=== PATIENT | female | born 1995 | race Two or more races ===

== ENCOUNTER 2018-09-07 09:41 | Emergency (ER) | payer OTHER ==
[~2018-09-07] VITALS: Ht 152.4 cm; Wt 108.9 kg
[2018-09-07] MEDS ORDERED: ONDANSETRON ODT 4 MG TAB.RAPDIS. PO ONE (10:00)
[2018-09-07] MEDS ORDERED: IBUPROFEN 600 MG TABLET. PO ONE (10:00)
--- NOTE | 2018-09-07 10:21 | PHYS DOC ---
Past Medical History Past Medical History: No Pertinent History Past Surgical History: No Surgical History Alcohol Use: Rarely Drug Use: None Adult General Chief Complaint Chief Complaint: FLANK PAIN HPI HPI Patient is a 23 year old female with no significant medical history who presents today complaining of 10 out of 10 left flank pain with dark urine that began yesterday. Patient denies any nausea vomiting. She is also complaining of subjective fevers. Denies any chance she is . Denies any personal family history of kidney stones. Review of Systems Review of Systems Constitutional: Denies fever or chills [] Eyes: Denies change in visual acuity, redness, or eye pain [] HENT: Denies nasal congestion or sore throat [] Respiratory: Denies cough or shortness of breath [] Cardiovascular: No additional information not addressed in HPI [] GI: Denies abdominal pain, nausea, vomiting, bloody stools or diarrhea [] : Reports left flank pain and dark urine. Denies dysuria or hematuria [] Musculoskeletal: Denies back pain or joint pain [] Integument: Denies rash or skin lesions [] Neurologic: Denies headache, focal weakness or sensory changes [] All other systems were reviewed and found to be within normal limits, except as documented in this note. Current Medications Current Medications Current Medications Medications (Trade) Dose Ordered Sig/Alyssia Start Time Stop Time Status Last Admin Dose Admin Ceftriaxone Sodium 50 ml @ 100 mls/hr 1X ONCE 09/07/18 12:15 09/07/18 12:44 Ibuprofen (Motrin) 600 mg 1X ONCE 09/07/18 10:00 09/07/18 10:24 DC 09/07/18 10:35 600 MG Ondansetron HCl (Zofran Odt) 4 mg 1X ONCE 09/07/18 10:00 09/07/18 10:24 DC 09/07/18 10:35 4 MG Sodium Chloride 1,000 ml @ 1,000 mls/hr 1X ONCE 09/07/18 10:45 09/07/18 11:44 DC 09/07/18 11:01 1,000 MLS/HR Allergies Allergies Allergies Coded Allergies Type Severity Reaction Last Updated Verified No Known Drug Allergies 09/07/18 No Physical Exam Physical Exam Constitutional: Well developed, well nourished, no acute distress, non-toxic appearance. [] HENT: Normocephalic, atraumatic, bilateral external ears normal, oropharynx moist, no oral exudates, nose normal. [] Eyes: PERRLA, EOMI, conjunctiva normal, no discharge. [] Neck: Normal range of motion, no tenderness, supple, no stridor. [] Cardiovascular:Heart rate regular rhythm, no murmur [] Lungs & Thorax: Bilateral breath sounds clear to auscultation [] Abdomen: Bowel sounds normal, soft, no tenderness, no masses, no pulsatile masses. [] Skin: Warm, dry, no erythema, no rash. [] Back: No tenderness, mild left CVA tenderness. [] Extremities: No tenderness, no cyanosis, no clubbing, ROM intact, no edema. [] Neurologic: Alert and oriented X 3, normal motor function, normal sensory function, no focal deficits noted. [] Psychologic: Affect normal, judgement normal, mood normal. [] Current Patient Data Vital Signs Vital Signs Date Time Temp Pulse Resp B/P (MAP) Pulse Ox O2 Delivery O2 Flow Rate FiO2 09/07/18 10:05 99.3 138 18 130/77 (94) 95 Room Air 99.3 Lab Values Laboratory Tests Test 09/07/18 09:10 09/07/18 09:58 09/07/18 10:00 09/07/18 11:00 Urine Opiates Screen Neg (NEG) Urine Methadone Screen Neg (NEG) Urine Barbiturates Neg (NEG) Urine Phencyclidine Screen Neg (NEG) Urine Amphetamine/Methamphetamine Neg (NEG) Urine Benzodiazepines Screen Neg (NEG) Urine Cocaine Screen Neg (NEG) Urine Cannabinoids Screen Neg (NEG) Urine Ethyl Alcohol Neg (NEG) Urine Collection Type Unknown Urine Color [place] Urine Clarity Cloudy Urine pH Urine Specific Joshua 1.025 Urine Protein mg/dL (NEG-TRACE) Urine Glucose (UA) mg/dL (NEG) Urine Ketones (Stick) mg/dL (NEG) Urine Blood (NEG) Urine Nitrite (NEG) Urine Bilirubin (NEG) Urine Urobilinogen Dipstick mg/dL (0.2 mg/dL) Urine Leukocyte Esterase (NEG) Urine RBC 6-10 /HPF (0-2) Urine WBC 11-20 /HPF (0-4) Urine Squamous Epithelial Cells Mod /LPF Urine Bacteria Many /HPF (0-FEW) POC Urine HCG, Qualitative Hcg negative (Negative) White Blood Count 15.7 x10^3/uL (4.0-11.0) H Red Blood Count 4.63 x10^6/uL (3.50-5.40) Hemoglobin 14.0 g/dL (12.0-15.5) Hematocrit 40.3 % (36.0-47.0) Mean Corpuscular Volume 87 fL (79-100) Mean Corpuscular Hemoglobin 30 pg (25-35) Mean Corpuscular Hemoglobin Concent 35 g/dL (31-37) Red Cell Distribution Width 12.9 % (11.5-14.5) Platelet Count 322 x10^3/uL (140-400) Neutrophils (%) (Auto) 80 % (31-73) H Lymphocytes (%) (Auto) 12 % (24-48) L Monocytes (%) (Auto) 6 % (0-9) Eosinophils (%) (Auto) 0 % (0-3) Basophils (%) (Auto) 1 % (0-3) Neutrophils # (Auto) 12.6 x10^3uL (1.8-7.7) H Lymphocytes # (Auto) 1.9 x10^3/uL (1.0-4.8) Monocytes # (Auto) 1.0 x10^3/uL (0.0-1.1) Eosinophils # (Auto) 0.0 x10^3/uL (0.0-0.7) Basophils # (Auto) 0.1 x10^3/uL (0.0-0.2) Platelet Estimate Pending Sodium Level 133 mmol/L (136-145) L Potassium Level 3.7 mmol/L (3.5-5.1) Chloride Level 96 mmol/L (98-107) L Carbon Dioxide Level 27 mmol/L (21-32) Anion Gap 10 (6-14) Blood Urea Nitrogen 7 mg/dL (7-20) Creatinine 0.6 mg/dL (0.6-1.0) Estimated GFR (Cockcroft-Gault) 123.9 BUN/Creatinine Ratio 12 (6-20) Glucose Level 251 mg/dL (70-99) H Calcium Level 9.4 mg/dL (8.5-10.1) Total Bilirubin 0.6 mg/dL (0.2-1.0) Aspartate Amino Transferase (AST) 11 U/L (15-37) L Alanine Aminotransferase (ALT) 33 U/L (14-59) Alkaline Phosphatase 82 U/L (46-116) Total Protein 9.3 g/dL (6.4-8.2) H Albumin 3.7 g/dL (3.4-5.0) Albumin/Globulin Ratio 0.7 (1.0-1.7) L Lipase 103 U/L (73-393) Laboratory Tests 09/07/18 11:00 Laboratory Tests 09/07/18 11:00 EKG EKG [] Radiology/Procedures Radiology/Procedures []PROCEDURE: CT ABDOMEN PELVIS WO CONTRAST Examination: CT ABDOMEN PELVIS WO CONTRAST History: L FLANK PAIN X 2 DAYS NO CONTRAST NO PREV ; dark urine Comparison/Correlation: None Findings: Axial images of the abdomen and pelvis were obtained without contrast. Sagittal and coronal reformatted images were provided. Visualized lung bases are clear. Diffuse fatty infiltration of the liver is noted. Spleen, pancreas, and adrenal glands are normal. No radiopaque collecting system calculi definitely identified. Slightly high of the medullary appearance noted. No enlarged abdominal or pelvic lymph nodes. Moderate quantity of stool in the colon. No obstruction. Appendix is normal. No ascites or pelvic free fluid. Urinary bladder is unremarkable. Bony structures are unremarkable. Impression: Diffuse fatty infiltration of the liver. No hydronephrosis. No radiopaque collecting system calculi. Electronically signed by: Tobi Stacy MD (09/07/2018 11:39 AM) [facility] DICTATED and SIGNED BY: TOBI STACY MD DATE: 09/07/18 1133 Course & Med Decision Making Course & Med Decision Making Pertinent Labs and Imaging studies reviewed. (See chart for details) This is a 23-year-old female patient presented to the ED today with left flank pain and dark urine that began yesterday. Negative urine hCG, urine analysis was not able to be read /interpreted due to the color of urine. Urine noted for many bacteria. CBC with a WBC of 15.7 and left shift. CMP with glucose of 251, anion gap is normal. Patient denies any previous history of diabetes. She states she can follow-up with her PCP for further check up on this. CT of the abdomen and pelvic was negative for any acute findings. Considering her urine was not interpreted due color and her elevated WBC i suspect this patient has pyelonephritis. Was given Rocephin in the ED. Discharged with cephalexin. Encouraged patient to push fluids. Encouraged patient to follow-up with her PCP in the course of this week or next week for possible diabetes management. Patient was also tachycardic on arrival to the ED with heart rates in the 130s. We gave her IV fluids. Heart rate has slowed down to low 100s, IV fluids still infusing at this point. Temperature is 99.0 on arrival to the ED, blood pressures in the 130s over 70s. Dragon Disclaimer Dragon Disclaimer This electronic medical record was generated, in whole or in part, using a voice recognition dictation system. Departure Departure Impression: Primary Impression: Acute pyelonephritis Additional Impressions: Tachycardia Hyperglycemia Disposition: 01 HOME, SELF-CARE Condition: STABLE Referrals: UNKNOWN PCP NAME (PCP) follow up with your doctor or a doctor from the list provided Patient Instructions: Hyperglycemia, [id number], Pyelonephritis, Adult Additional Instructions: You were evaluated in the emergency room for flank pain, we suspect you have kidney infection. We put you on antibiotics, ensure you complete them. Take the prescribed pain medicines and nausea medicine as needed. Push fluids. Your blood glucose was 251, this is very high, normal blood glucose is 70-99. Please come back to the ED at any point symptoms worsen. Scripts Ibuprofen (IBUPROFEN) 600 Mg Tablet 600 MG PO PRN Q6HRS PRN for INFLAMMATION, #30 TAB Prov: IRMA MCCRAY APRN 09/07/18 Hydrocodone/Apap 5-325 (NORCO 5-325 TABLET) 1 Each Tablet 1 TAB PO Q6HRS, #10 TAB Prov: IRMA MCCARY APRN 09/07/18 Ondansetron (ZOFRAN ODT) 4 Mg Tab.rapdis 1 TAB SL Q8HRS, #15 TAB Prov: IRMA MCCRAY APRN 09/07/18 Cephalexin (CEPHALEXIN) 500 Mg Tablet 1 TAB PO BID, #14 TAB Prov: IRMA MCCRAY APRN 09/07/18 Problem Qualifiers IRMA MCCRAY APRN Sep 07, 2018 10:21
[2018-09-07 10:30] LABS: CLARITY,URINE CLOUDY; COLOR,URINE ORANGE
[2018-09-07] MEDS ORDERED: IV NORMAL SALINE 1000ML BAG 1,000 ML IV ONE (10:45)
[2018-09-07 10:56] LABS: SQUAMOUS EPITHELIAL CELL,UR MOD /LPF
[2018-09-07 10:57] LABS: BACTERIA,URINE MANY /HPF (0-FEW)
[2018-09-07 11:09] LABS: BASO # 0.1 x10^3/uL (0.0-0.2); BASO % 1 % (0-3); EOS % 0 % (0-3); HEMATOCRIT 40.3 % (36.0-47.0); LYMPH # 1.9 x10^3/uL (1.0-4.8); LYMPH % 12 % (24-48); MEAN CORPUSCULAR HEMOGLOBIN 30 pg (25-35); MEAN CORPUSCULAR HGB CONC 35 g/dL (31-37); MEAN CORPUSCULAR VOLUME 87 fL (79-100); MONO % 6 % (0-9); NEUT # 12.6 x10^3uL (1.8-7.7); NEUT % 80 % (31-73); PLATELET COUNT 322 x10^3/uL (140-400); RED BLOOD COUNT 4.63 x10^6/uL (3.50-5.40); RED CELL DISTRIBUTION WIDTH 12.9 % (11.5-14.5); WHITE BLOOD COUNT 15.7 x10^3/uL (4.0-11.0)
[2018-09-07 11:21] LABS: CALCIUM 9.4 mg/dL (8.5-10.1); CREATININE 0.6 mg/dL (0.6-1.0); GFR 123.9; POTASSIUM 3.7 mmol/L (3.5-5.1)
[2018-09-07 11:39] LABS: ALBUMIN 3.7 g/dL (3.4-5.0); ALBUMIN/GLOBULIN RATIO 0.7 (1.0-1.7); TOTAL BILIRUBIN 0.6 mg/dL (0.2-1.0); TOTAL PROTEIN 9.3 g/dL (6.4-8.2)
--- NOTE | 2018-09-07 11:42 | RAD ---
Examination: CT ABDOMEN PELVIS WO CONTRAST History: L FLANK PAIN X 2 DAYS NO CONTRAST NO PREV ; dark urine Comparison/Correlation: None Findings: Axial images of the abdomen and pelvis were obtained without contrast. Sagittal and coronal reformatted images were provided. Visualized lung bases are clear. Diffuse fatty infiltration of the liver is noted. Spleen, pancreas, and adrenal glands are normal. No radiopaque collecting system calculi definitely identified. Slightly high of the medullary appearance noted. No enlarged abdominal or pelvic lymph nodes. Moderate quantity of stool in the colon. No obstruction. Appendix is normal. No ascites or pelvic free fluid. Urinary bladder is unremarkable. Bony structures are unremarkable. Impression: Diffuse fatty infiltration of the liver. No hydronephrosis. No radiopaque collecting system calculi. Electronically signed by: Pablo Bridges MD (09/07/2018 11:39 AM) [facility]
[2018-09-07 12:07] LABS: BARBITURATES NEG (NEG); BENZODIAZEPINES NEG (NEG); CANNABINOIDS NEG (NEG); COCAINE NEG (NEG); METHADONE NEG (NEG); OPIATES NEG (NEG); PHENCYCLIDINE NEG (NEG)
[2018-09-07 12:09] LABS: AMPHETAMINE/METHAMPHETAMINE NEG (NEG)
[2018-09-07] MEDS ORDERED: IBUP-1007 PO (12:43)
[2018-09-07] MEDS ORDERED: CEPH500T PO (12:43)
[2018-09-07] MEDS ORDERED: HYDR-3164 PO (12:43)
[2018-09-07] MEDS ORDERED: ONDA4TAB10 SL (12:43)
[2018-09-07 12:54] VITALS: BP 107/60
[2018-09-07 13:18] LABS: % ATYL 1 % (0-0); % BANDS 10 % (0-9); % LYMPHS 9 % (24-48); % MONOS 6 % (0-10); % SEGS 74 % (35-66)
[2018-09-07 13:19] LABS: PLT ESTIMATE ADEQUATE (ADEQUATE)
== END 2018-09-07 13:20 | disposition home or self-care (01) ==
LOC: ER 09:41
DX: N10 Acute pyelonephritis (principal); R00.0 Tachycardia, unspecified; R73.9 Hyperglycemia, unspecified; K76.0 Fatty (change of) liver, not elsewhere classified
CPT/HCPCS: 36415; 74176; 80053; 80307; 81001; 81025; 83690; 85007; 85025; 87086; 96365; 99285; J0690; J7030; Q0162

== ENCOUNTER 2018-09-10 13:54 | Emergency (ER) | payer OTHER ==
[~2018-09-10] VITALS: Ht 154.9 cm; Wt 77.1 kg
[~2018-09-10 13:54] MED LIST: CEPH500T PO; HYDR-3164 PO; IBUP-1007 PO; ONDA4TAB10 SL
[2018-09-10 14:00] VITALS: BP 168/81
[2018-09-10] MEDS ORDERED: BISACODYL 5 MG TABLET.DR. PO STA (14:18)
[2018-09-10] MEDS ORDERED: MAGNESIUM CITRATE 296 ML SOLUTION. PO ONE (14:30)
[2018-09-10] MEDS ORDERED: ONDANSETRON ODT 4 MG TAB.RAPDIS. PO ONE (14:30)
--- NOTE | 2018-09-10 14:49 | PHYS DOC ---
Past Medical History Past Medical History: No Pertinent History Past Surgical History: No Surgical History Alcohol Use: Rarely Drug Use: None Adult General Chief Complaint Chief Complaint: CONSTIPATION HPI HPI Patient is a 23 year old female with no significant medical history who presents today complaining of constipation for 6 days. Patient states she was seen in the ED 3 days ago was diagnosed with pyelonephritis and given prescription for hydrocodone which made her constipation worse. Patient is also complaining of nausea with no vomiting. Denies any diarrhea. Review of Systems Review of Systems Constitutional: Denies fever or chills [] Eyes: Denies change in visual acuity, redness, or eye pain [] HENT: Denies nasal congestion or sore throat [] Respiratory: Denies cough or shortness of breath [] Cardiovascular: No additional information not addressed in HPI [] GI: Reports constipation, nausea, denies vomiting, bloody stools or diarrhea [] : Denies dysuria or hematuria [] Musculoskeletal: Denies back pain or joint pain [] Integument: Denies rash or skin lesions [] Neurologic: Denies headache, focal weakness or sensory changes [] All other systems were reviewed and found to be within normal limits, except as documented in this note. Current Medications Current Medications Current Medications Medications (Trade) Dose Ordered Sig/Alyssia Start Time Stop Time Status Last Admin Dose Admin Bisacodyl (Dulcolax Tab) 10 mg 1X STAT 09/10/18 14:18 09/10/18 14:21 DC 09/10/18 14:36 10 MG Docusate Sodium (Enemeez) 283 mg 1X ONCE 09/10/18 15:30 09/10/18 15:32 DC Magnesium Citrate (Citroma) 296 ml 1X ONCE 09/10/18 14:30 09/10/18 14:31 DC 09/10/18 14:36 296 ML Ondansetron HCl (Zofran Odt) 4 mg 1X ONCE 09/10/18 14:30 09/10/18 14:31 DC 09/10/18 14:36 4 MG Sodium Monofluorophosphate (Fleet Adult) 133 ml 1X ONCE 09/10/18 16:15 09/10/18 16:16 DC 09/10/18 16:06 133 ML Allergies Allergies Allergies Coded Allergies Type Severity Reaction Last Updated Verified No Known Drug Allergies 09/07/18 No Physical Exam Physical Exam Constitutional: Well developed, well nourished, no acute distress, non-toxic appearance. [] HENT: Normocephalic, atraumatic, bilateral external ears normal, oropharynx moist, no oral exudates, nose normal. [] Eyes: PERRLA, EOMI, conjunctiva normal, no discharge. [] Neck: Normal range of motion, no tenderness, supple, no stridor. [] Cardiovascular:Heart rate regular rhythm, no murmur [] Lungs & Thorax: Bilateral breath sounds clear to auscultation [] Abdomen: Rounded abdomen. Bowel sounds normal, soft, tenderness on palpation of the left lower quadrant, no right upper quadrant or right lower ordered tenderness, no masses, no pulsatile masses. [] rectal exam External rectum is normal. Attempted to do a rectal exam patient could not tolerate it. She states it is too painful Skin: Warm, dry, no erythema, no rash. [] Back: No tenderness, no CVA tenderness. [] Extremities: No tenderness, no cyanosis, no clubbing, ROM intact, no edema. [] Neurologic: Alert and oriented X 3, normal motor function, normal sensory function, no focal deficits noted. [] Psychologic: Affect normal, judgement normal, mood normal. [] Current Patient Data Vital Signs Vital Signs Date Time Temp Pulse Resp B/P (MAP) Pulse Ox O2 Delivery O2 Flow Rate FiO2 09/10/18 14:00 97.8 112 18 168/81 (110) 96 Room Air 97.8 EKG EKG [] Radiology/Procedures Radiology/Procedures []PROCEDURE: KUB EXAM: Supine AP view of the abdomen DATE: 09/10/2018 2:22 PM INDICATION: LEFT FLANK PAIN. NO BM X1 WEEK COMPARISON: No Prior FINDINGS: No abnormal small or large bowel dilatation. Large volume colonic stool content most prominent within the rectum. No abnormal soft tissue mass effect. No suspicious calcifications are seen. Evaluation for free intraperitoneal gas is limited on this supine exam. IMPRESSION: 1. No evidence for bowel obstruction. 2. Large volume colonic stool content most prominent within the rectum. Electronically signed by: Carl Rao MD (09/10/2018 2:46 PM) [facility] DICTATED and SIGNED BY: CARL RAO MD DATE: 09/10/18 6387 Course & Med Decision Making Course & Med Decision Making Pertinent Labs and Imaging studies reviewed. (See chart for details) This is a 23-year-old female patient presenting to the ED today with constipation for 6 days. Was given Dulcolax madrid citrate in the ED. KUB noted for Large volume colonic stool content most prominent within the rectum. Patient was given mag citrate in the ED, Dulcolax and an enema was performed. Patient had a small BM in the Ed. D/c with instructions to push fluids, increase dietary fiber intake, take miralax daily and docusate sodium. Dragon Disclaimer Dragon Disclaimer This electronic medical record was generated, in whole or in part, using a voice recognition dictation system. Departure Departure Impression: Primary Impression: Constipation Disposition: HOME, SELF-CARE Condition: STABLE Referrals: NO PCP (PCP) ALEYDA PLEITEZ MD follow up in one week Patient Instructions: Constipation, Adult, [id number] Additional Instructions: You were evaluated in the emergency room and noted to be constipated. Continue taking MiraLAX daily. Continue using prune juice. You can also take docusate sodium. Take Mag citrate tomorrow morning if you still feel constipated. Increase your dietary fiber intake as well as a water intake. Consider exercising and lose some weight. Problem Qualifiers Primary Impression: Constipation Constipation type: unspecified constipation type Qualified Codes: K59.00 - Constipation, unspecified IRMA MCCRAY CAREER DEVELOPMENT COORDINATOR Sep 10, 2018 14:49
[2018-09-10] MEDS ORDERED: DOCUSATE SODIUM 283 MG/5 ML ENEMA. PR ONE (15:30)
[2018-09-10] MEDS ORDERED: SODIUM PHOSPHATES 19/7GM 133 ML ENEMA. ONE (15:41)
[2018-09-10] MEDS ORDERED: SODIUM PHOSPHATES 19/7GM 133 ML ENEMA. PR ONE (16:15)
== END 2018-09-10 17:14 | disposition home or self-care (01) ==
LOC: ER 13:54
DX: K59.00 Constipation, unspecified (principal); R11.0 Nausea
CPT/HCPCS: 74018; 99284; Q0162